=== PATIENT | female | born 1930 | race Caucasian/White ===

== ENCOUNTER 2017-07-02 14:49 | Emergency (ER) | payer MEDICARE, OTHER ==
[2017-07-02 18:38] VITALS: BP 126/93
[2017-07-02] MEDS ORDERED: NS 0.9% 1000 ML* 2,000 ML IV ONE (18:40)
[2017-07-02 18:55] LABS: Hematocrit 44 % (35-47); Hemoglobin 14.8 g/dl (12.0-16.0); Mean Corpuscular HGB Conc 34 g/dl (31-36); Mean Corpuscular Hemoglobin 30 pg (27-31); Mean Corpuscular Volume 88 fL (80-97); Mean Platelet Volume 10 um3 (7.4-10.4); Red Blood Count 4.97 10^6/ul (4.0-5.4); Red Cell Distribution Width 13 % (10.5-15); White Blood Count 10.3 10^3/ul (3.5-10.8)
[2017-07-02] MEDS ORDERED: Ondansetron INJ* 2 MG/ML VIAL IV ONE (18:55)
[2017-07-02] MEDS ORDERED: Ondansetron INJ* 2 MG/ML VIAL ONE (18:56)
[2017-07-02 19:07] LABS: Albumin 4.2 g/dL (3.2-5.2); BUN/Creatinine Ratio 30.4 (8-20); C Reactive Protein 7.86 mg/L (< 5.00); Calcium 9.9 mg/dL (8.6-10.3); EGFR African American 74.8 (>60); EGFR Non-African American 58.2 (>60); Globulin 3.7 g/dL (2-4); Total Bilirubin 0.5 mg/dL (0.2-1.0); Total Protein 7.9 g/dL (6.4-8.9)
[2017-07-02] MEDS ORDERED: Ketorolac INJ* 30 MG/ML 1 ML VIAL IV ONE ×2 (19:17→19:43)
--- NOTE | 2017-07-02 20:26 | RAD ---
CLINICAL HISTORY: Right flank pain COMPARISON: January 03, 2012 TECHNIQUE: Multiple contiguous axial CT scans were obtained of the abdomen and pelvis, without intravenous contrast enhancement. Coronal and sagittal multiplanar reformations are submitted for review. Oral contrast was not administered. FINDINGS: The study is limited by the lack of intravenous contrast. This limits evaluation of the solid organs and vasculature. LUNG BASES: The lung bases are clear. LIVER: The liver is normal in shape, size, contour, and attenuation. BILE DUCTS: There is no intrahepatic or extrahepatic biliary dilatation. GALLBLADDER: The gallbladder is not visualized. Surgical clips are noted in the gallbladder fossa. PANCREAS: The pancreas is normal, without mass or ductal dilatation. SPLEEN: Normal in size and appearance. UPPER GI TRACT: Evaluation of the gastrointestinal tract is limited by incomplete gastric distention. There is a small sliding hiatal hernia SMALL BOWEL AND MESENTERY: The small bowel is normal in contour, course, and caliber. There is no obstruction or dilatation. COLON: There are multiple diverticula of the transverse, descending, and sigmoid colon ADRENALS: Normal bilaterally. KIDNEYS: There is perinephric stranding on the right with moderate pelviectasis and hydroureter. There are multiple calculi of the distal right ureter, including a right UVJ calculus measuring 0.4 cm. There is an exophytic renal cyst on the left. BLADDER: The bladder is smooth in contour. PELVIC ORGANS: The pelvic organs are not visualized. AORTA: There is calcific atherosclerotic disease of the abdominal aorta and its branches, without aneurysmal dilatation IVC: Unremarkable LYMPH NODES: There is no lymphadenopathy by size criteria. ABDOMINAL WALL: There is a small fat-containing umbilical hernia. BONES AND SOFT TISSUES: Degenerative changes are noted of the spine OTHER: None IMPRESSION: 1. THERE ARE MULTIPLE RIGHT-SIDED URETERAL STONES, INCLUDING A 0.4 CM CALCULUS OF THE LEFT UVJ, WITH RIGHT-SIDED HYDRONEPHROSIS. 2. DIVERTICULOSIS. 3. ATHEROSCLEROSIS
[2017-07-02 21:06] LABS: Urine Bacteria Absent (Absent); Urine Bilirubin Negative (Negative); Urine Glucose 1+(50 mg/dL) (Negative); Urine Nitrite Negative (Negative)
[2017-07-02] MEDS ORDERED: traMADol TAB* 50 MG PO ONE (22:00)
[2017-07-02] MEDS ORDERED: Tamsulosin CAP* 0.4 MG PO ONE (22:00)
--- NOTE | 2017-07-02 23:14 | ED ---
Diogo Georges Nikita, scribed for Nasir Miles MD on 07/02/17 at 2241 . Abdominal Pain/Female - HPI Summary HPI Summary: This patient is an 86 year old F presenting to ED with a chief complaint of R flank pain since 0800 this morning. The CC is described as constant and non- radiating. The patient rates the pain 10/10 in severity. Symptoms aggravated by nothing. Symptoms alleviated by nothing (took Tylenol at 1300). Patient reports feeling cold, difficulty urinating (feels like she needs to urinate, but cant) , and vomiting (3x while waiting). Patient denies fever, L flank pain, CP, and SOB. PMHx of kidney stones (December 2009) and appendicitis. PSHx of appendectomy and cholecystectomy. - History of Current Complaint Chief Complaint: EDFlankPain Stated Complaint: RIGHT FLANK PAIN Time Seen by Provider: 07/02/17 19:17 Hx Obtained From: Patient Onset/Duration: Sudden Onset, Lasting Hours, Still Present Severity Initially: Severe Severity Currently: Severe Pain Intensity: 10 Pain Scale Used: 0-10 Numeric Location: Flank - R flank Radiates: No Aggravating Factor(s): Nothing Alleviating Factor(s): Nothing - took tylenol at 1300 but did not help Associated Signs and Symptoms: Positive: Other: - Patient reports feeling cold, difficulty urinating (feels like she needs to urinate, but cant), and vomiting (3x while waiting). Patient denies fever, L flank pain, CP, and SOB. Allergies/Adverse Reactions: Allergies Allergy/AdvReac Type Severity Reaction Status Date / Time No Known Allergies Allergy Verified 07/02/17 15:02 PMH/Surg Hx/FS Hx/Imm Hx Endocrine/Hematology History: Denies: Hx Diabetes Cardiovascular History: Denies: Hx Hypertension, Hx Pacemaker/ICD History: Denies: Hx Renal Disease Sensory History: Denies: Hx Hearing Aid Psychiatric History: Denies: Hx Panic Disorder - Cancer History Hx Chemotherapy: No Hx Radiation Therapy: No - Surgical History Surgery Procedure, Year, and Place: HYSTERECTOMY. GALLBLADDER. APPENDIX Infectious Disease History: No Infectious Disease History: Denies: Traveled Outside the [place] in Last 30 Days - Family History Known Family History: Positive: Unknown - pt can't remember - Social History Alcohol Use: None Substance Use Type: Reports: None Smoking Status (MU): Never Smoked Tobacco Review of Systems Negative: Fever Negative: Chest Pain Negative: Shortness Of Breath Positive: Abdominal Pain - R flank, Vomiting - 3x while eating, Other - denies L flank pain Positive: other - Difficulty urinating (feels like she needs to urinate, but can t) All Other Systems Reviewed And Are Negative: Yes Physical Exam Triage Information Reviewed: Yes Vital Signs On Initial Exam: Initial Vitals Temp Pulse Resp BP Pulse Ox 97.2 F 62 20 138/68 97 07/02/17 14:58 07/02/17 14:58 07/02/17 14:58 07/02/17 14:58 07/02/17 14:58 Vital Signs Reviewed: Yes Appearance: Positive: Well-Appearing, No Pain Distress Skin: Positive: Warm, Skin Color Reflects Adequate Perfusion, Dry Head/Face: Positive: Normal Head/Face Inspection Eyes: Positive: EOMI, RUTHIE ENT: Positive: Normal ENT inspection Neck: Positive: Supple, Nontender Respiratory/Lung Sounds: Positive: Clear to Auscultation, Breath Sounds Present Cardiovascular: Positive: RRR Abdomen Description: Positive: Soft, Other: - mild RUQ tenderness, R CVA tenderness Bowel Sounds: Positive: Present Musculoskeletal: Positive: Normal, Strength/ROM Intact Neurological: Positive: Normal, Sensory/Motor Intact, Alert, Oriented to Person Place, Time Psychiatric: Positive: Affect/Mood Appropriate Diagnostics - Vital Signs Vital Signs Temp Pulse Resp BP Pulse Ox 07/02/17 18:20 97.8 F 66 18 126/93 100 07/02/17 17:05 98.1 F 60 20 149/56 98 07/02/17 14:58 97.2 F 62 20 138/68 97 - Laboratory Lab Results: Lab Results 07/02/17 07/02/17 07/02/17 Range/Units 18:34 18:34 18:34 WBC 10.3 (3.5-10.8) 10^3/ul RBC 4.97 (4.0-5.4) 10^6/ul Hgb 14.8 (12.0-16.0) g/dl Hct 44 (35-47) % MCV 88 (80-97) fL MCH 30 (27-31) pg MCHC 34 (31-36) g/dl RDW 13 (10.5-15) % Plt Count 208 (150-450) 10^3/ul MPV 10 (7.4-10.4) um3 Neut % (Auto) 81.6 (38-83) % Lymph % (Auto) 13.9 L (25-47) % Green % (Auto) 3.8 (1-9) % Eos % (Auto) 0.5 (0-6) % Baso % (Auto) 0.2 (0-2) % Absolute Neuts (auto) 8.5 H (1.5-7.7) 10^3/ul Absolute Lymphs (auto) 1.4 (1.0-4.8) 10^3/ul Absolute Monos (auto) 0.4 (0-0.8) 10^3/ul Absolute Eos (auto) 0 (0-0.6) 10^3/ul Absolute Basos (auto) 0 (0-0.2) 10^3/ul Absolute Nucleated RBC 0.01 10^3/ul Nucleated RBC % 0.1 INR (Anticoag Therapy) 0.96 (0.89-1.11) APTT 30.6 (26.0-36.3) seconds Sodium 138 (133-145) mmol/L Potassium 4.0 (3.5-5.0) mmol/L Chloride 103 (101-111) mmol/L Carbon Dioxide 28 (22-32) mmol/L Anion Gap 7 (2-11) mmol/L BUN 28 H (6-24) mg/dL Creatinine 0.92 (0.51-0.95) mg/dL Est GFR ( Amer) 74.8 (>60) Est GFR (Non-Af Amer) 58.2 (>60) BUN/Creatinine Ratio 30.4 H (8-20) Glucose 148 H (70-100) mg/dL Lactic Acid (0.5-2.0) mmol/L Calcium 9.9 (8.6-10.3) mg/dL Total Bilirubin 0.50 (0.2-1.0) mg/dL AST 16 (13-39) U/L ALT 16 (7-52) U/L Alkaline Phosphatase 84 (34-104) U/L C-Reactive Protein 7.86 H (< 5.00) mg/L Total Protein 7.9 (6.4-8.9) g/dL Albumin 4.2 (3.2-5.2) g/dL Globulin 3.7 (2-4) g/dL Albumin/Globulin Ratio 1.1 (1-3) Lipase 18 (11.0-82.0) U/L 07/02/17 Range/Units 18:34 WBC (3.5-10.8) 10^3/ul RBC (4.0-5.4) 10^6/ul Hgb (12.0-16.0) g/dl Hct (35-47) % MCV (80-97) fL MCH (27-31) pg MCHC (31-36) g/dl RDW (10.5-15) % Plt Count (150-450) 10^3/ul MPV (7.4-10.4) um3 Neut % (Auto) (38-83) % Lymph % (Auto) (25-47) % Green % (Auto) (1-9) % Eos % (Auto) (0-6) % Baso % (Auto) (0-2) % Absolute Neuts (auto) (1.5-7.7) 10^3/ul Absolute Lymphs (auto) (1.0-4.8) 10^3/ul Absolute Monos (auto) (0-0.8) 10^3/ul Absolute Eos (auto) (0-0.6) 10^3/ul Absolute Basos (auto) (0-0.2) 10^3/ul Absolute Nucleated RBC 10^3/ul Nucleated RBC % INR (Anticoag Therapy) (0.89-1.11) APTT (26.0-36.3) seconds Sodium (133-145) mmol/L Potassium (3.5-5.0) mmol/L Chloride (101-111) mmol/L Carbon Dioxide (22-32) mmol/L Anion Gap (2-11) mmol/L BUN (6-24) mg/dL Creatinine (0.51-0.95) mg/dL Est GFR ( Amer) (>60) Est GFR (Non-Af Amer) (>60) BUN/Creatinine Ratio (8-20) Glucose (70-100) mg/dL Lactic Acid 1.2 (0.5-2.0) mmol/L Calcium (8.6-10.3) mg/dL Total Bilirubin (0.2-1.0) mg/dL AST (13-39) U/L ALT (7-52) U/L Alkaline Phosphatase (34-104) U/L C-Reactive Protein (< 5.00) mg/L Total Protein (6.4-8.9) g/dL Albumin (3.2-5.2) g/dL Globulin (2-4) g/dL Albumin/Globulin Ratio (1-3) Lipase (11.0-82.0) U/L Result Diagrams: 07/02/17 18:34 07/02/17 18:34 Lab Statement: Any lab studies that have been ordered have been reviewed, and results considered in the medical decision making process. Re-Evaluation - Re-Evaluation First Eval Re-Evaluation Time: 20:55 Change: Improved Comment: Pt is feeling better. Discussed discharge plan. Abdominal Pain Fem Course/Dx - Course Course Of Treatment: This patient is an 86 year old F presenting to ED with a chief complaint of R flank pain since 0800 this morning. The CC is described as constant and non-radiating. The patient rates the pain 10/10 in severity. Symptoms aggravated by nothing. Symptoms alleviated by nothing (took Tylenol at 1300). Patient reports feeling cold, difficulty urinating (feels like she needs to urinate, but cant), and vomiting (3x while waiting). Patient denies fever, L flank pain, CP, and SOB. In the ED course, pt was given fluids and pain medication. Medications reviewed. Pt will be discharged. Pt is agreeable with this plan. PAIN IMPROVED IN ED. DISCUSSED RESULTS WITH PATIENT/. NO EVIDENCE OF UTI. RX FLOMAX AND TRAMADOL. F/U UROLOGY; RETUEN TO ED IF WORSE. - Diagnoses Provider Diagnoses: Kidney stone on right side Discharge - Discharge Plan Condition: Stable Disposition: HOME Prescriptions: Tamsulosin CAP* [Flomax CAP*] 0.4 mg PO DAILY PRN #5 cap PRN Reason: Pain traMADol TAB* [Ultram*] 50 mg PO Q6HR PRN #15 tab MDD 4 PRN Reason: Pain Patient Education Materials: Kidney Stones (ED) Referrals: Bella Nathan MD [Primary Care Provider] - Additional Instructions: FOLLOW UP WITH UROLOGY. RETURN TO THE EMERGENCY DEPARTMENT FOR ANY WORSENING OF YOUR CONDITION; PAIN, FEVER, VOMITING, YOU FEEL ILL OR QUESTIONS OR CONCERNS. The documentation as recorded by the Diogo farias Nikita accurately reflects the service I personally performed and the decisions made by me, Nasir Miles MD.
== END 2017-07-02 21:39 | disposition home or self-care (01) ==
LOC: ED 14:49
DX: N20.0 Calculus of kidney (principal)
CPT/HCPCS: 36415; 74176; 80053; 81003; 81015; 83605; 83690; 85025; 85610; 85730; 86140; 87086; 96374; 96375; 96376; 99282; A9270-GY; J1885; J2405

== ENCOUNTER 2022-05-07 14:07 | Inpatient (IN) ==
[2022-05-07 15:35] LABS: ABS Eosinophils 0.1 10^3/ul (0-0.6); ABS Lymphocytes 1.2 10^3/ul (1.0-4.8); ABS Monocytes 1.1 10^3/ul (0-0.8); ABS Neutrophils 7.8 10^3/ul (1.5-7.7); Hematocrit 35 % (35-47); Hemoglobin 12.2 g/dL (12.0-16.0); Lymphocyte % 11.4 %; Mean Corpuscular HGB Conc 35 g/dL (31-36); Mean Corpuscular Hemoglobin 30 pg (27-31); Mean Corpuscular Volume 86 fL (80-97); Mean Platelet Volume 8.2 fL (7.4-10.4); Nucleated Red Blood Cells % 0.1; Platelet Count 398 10^3/uL (150-450); Red Blood Count 4.09 10^6 /uL (3.70-4.87); Red Cell Distribution Width 17 % (10-15); White Blood Count 10.1 10^3/uL (3.5-10.8)
[2022-05-07 15:47] LABS: Albumin 3.6 g/dL (3.2-5.2); Calcium 10.5 mg/dL (8.6-10.3); Magnesium 1.9 mg/dL (1.9-2.7); Potassium 4.4 mmol/L (3.5-5.0); Total Bilirubin 0.7 mg/dL (0.2-1.0)
[2022-05-07 15:53] LABS: Albumin/Globulin Ratio 1.2 (1-3); Phosphorus 3.6 mg/dL (2.5-5.0); Total Protein 6.6 g/dL (6.4-8.9); eGFR CKD-EPI 45.1 (>60)
[2022-05-07] MEDS ORDERED: SALIVA SUBSTITUTE MT SCH (17:00)
[2022-05-07] MEDS: Enoxaparin 40 MG/0.4 ML SYR SUBCUT SCH (18:06)
[2022-05-07] MEDS: NS 0.9% 1000 ml BAG 1,000 ML IV SCH (19:49)
[2022-05-07 21:16] LABS: Hepatitis B Surface Antigen Nonreactive (Nonreactive)
[2022-05-07 21:21] LABS: Hepatitis B Core IgM Nonreactive (Nonreactive)
[2022-05-07 21:44] LABS: Hepatitis B Surface Ab Not Immune (Immune); Hepatitis C Antibody Negative (Negative)
[2022-05-08] MEDS: NS 0.9% 1000 ml BAG 1,000 ML IV SCH ×2 (05:54→16:53)
[2022-05-08 07:00] LABS: ABS Eosinophils 0.2 10^3/ul (0-0.6); ABS Lymphocytes 1.4 10^3/ul (1.0-4.8); ABS Monocytes 0.8 10^3/ul (0-0.8); ABS Neutrophils 6.1 10^3/ul (1.5-7.7); Eosinophil % 1.8 %; Hematocrit 34 % (35-47); Hemoglobin 11.9 g/dL (12.0-16.0); Lymphocyte % 16.9 %; Mean Corpuscular HGB Conc 35 g/dL (31-36); Mean Corpuscular Hemoglobin 30 pg (27-31); Mean Corpuscular Volume 86 fL (80-97); Mean Platelet Volume 8.8 fL (7.4-10.4); Platelet Count 376 10^3/uL (150-450); Red Blood Count 3.98 10^6 /uL (3.70-4.87); Red Cell Distribution Width 17 % (10-15); White Blood Count 8.5 10^3/uL (3.5-10.8)
[2022-05-08 07:25] LABS: Albumin 3.5 g/dL (3.2-5.2); Albumin/Globulin Ratio 1.3 (1-3); Calcium 10.4 mg/dL (8.6-10.3); Globulin 2.7 g/dL (2-4); Phosphorus 3.4 mg/dL (2.5-5.0); Potassium 4.7 mmol/L (3.5-5.0); Total Bilirubin 0.6 mg/dL (0.2-1.0); Total Protein 6.2 g/dL (6.4-8.9); Uric Acid 9.3 mg/dL (2.3-6.6); eGFR CKD-EPI 50.2 (>60)
[2022-05-08] MEDS: Multivitamins/Minerals TAB PO SCH (10:16)
[2022-05-08] MEDS: CMC: Simvastatin 10 mg TAB (NF) PO SCH (10:17)
[2022-05-08] MEDS: Enoxaparin 40 MG/0.4 ML SYR SUBCUT SCH (16:55)
[2022-05-09] MEDS: NS 0.9% 1000 ml BAG 1,000 ML IV SCH ×2 (02:57→20:37)
[2022-05-09 07:00] LABS: ABS Eosinophils 0.2 10^3/ul (0-0.6); ABS Lymphocytes 0.9 10^3/ul (1.0-4.8); ABS Monocytes 0.8 10^3/ul (0-0.8); ABS Neutrophils 4.9 10^3/ul (1.5-7.7); Hematocrit 31 % (35-47); Lymphocyte % 13.7 %; Mean Corpuscular HGB Conc 33 g/dL (31-36); Mean Corpuscular Hemoglobin 28 pg (27-31); Mean Corpuscular Volume 86 fL (80-97); Mean Platelet Volume 8.9 fL (7.4-10.4); Platelet Count 298 10^3/uL (150-450); Red Blood Count 3.54 10^6 /uL (3.70-4.87); Red Cell Distribution Width 18 % (10-15); White Blood Count 6.9 10^3/uL (3.5-10.8)
[2022-05-09 07:12] LABS: Albumin/Globulin Ratio 1.4 (1-3); Calcium 9.7 mg/dL (8.6-10.3); Globulin 2.2 g/dL (2-4); Phosphorus 3.1 mg/dL (2.5-5.0); Potassium 4.5 mmol/L (3.5-5.0); Total Bilirubin 0.5 mg/dL (0.2-1.0); Total Protein 5.2 g/dL (6.4-8.9); Uric Acid 7.2 mg/dL (2.3-6.6); eGFR CKD-EPI 63.6 (>60)
[2022-05-09] MEDS ORDERED: Rasburicase 1.5 MG VIAL(NF) IVPB ONE (09:00)
[2022-05-09] MEDS: Multivitamins/Minerals TAB PO SCH (09:51)
[2022-05-09] MEDS: CMC: Simvastatin 10 mg TAB (NF) PO SCH (09:52)
[2022-05-09] MEDS: Enoxaparin 40 MG/0.4 ML SYR SUBCUT SCH (18:11)
[2022-05-10 05:39] LABS: ABS Lymphocytes 1.1 10^3/ul (1.0-4.8); ABS Monocytes 0.6 10^3/ul (0-0.8); ABS Neutrophils 5.7 10^3/ul (1.5-7.7); Eosinophil % 0.2 %; Hematocrit 31 % (35-47); Hemoglobin 9.9 g/dL (12.0-16.0); Lymphocyte % 14.6 %; Mean Corpuscular HGB Conc 32 g/dL (31-36); Mean Corpuscular Hemoglobin 28 pg (27-31); Mean Corpuscular Volume 87 fL (80-97); Mean Platelet Volume 8.8 fL (7.4-10.4); Nucleated Red Blood Cells % 0.1; Platelet Count 319 10^3/uL (150-450); Red Blood Count 3.57 10^6 /uL (3.70-4.87); Red Cell Distribution Width 18 % (10-15); White Blood Count 7.5 10^3/uL (3.5-10.8)
[2022-05-10 05:57] LABS: Albumin/Globulin Ratio 1.3 (1-3); Calcium 9.3 mg/dL (8.6-10.3); Globulin 2.3 g/dL (2-4); Phosphorus 2.9 mg/dL (2.5-5.0); Potassium 4.4 mmol/L (3.5-5.0); Total Bilirubin 0.4 mg/dL (0.2-1.0); Total Protein 5.3 g/dL (6.4-8.9); Uric Acid 6.2 mg/dL (2.3-6.6); eGFR CKD-EPI 53.2 (>60)
[2022-05-10] MEDS: NS 0.9% 1000 ml BAG 1,000 ML IV SCH ×2 (07:33→18:20)
[2022-05-10] MEDS: Multivitamins/Minerals TAB PO SCH (09:48)
[2022-05-10] MEDS: CMC: Simvastatin 10 mg TAB (NF) PO SCH (09:49)
[2022-05-10] MEDS: Sulfamethox/Trimethoprim DS TAB 800/160 mg PO SCH (10:00)
[2022-05-10] MEDS ORDERED: HYDROcodone/ACETAMIN 5/325 mg TAB PO ONE (14:56)
[2022-05-10] MEDS: Enoxaparin 40 MG/0.4 ML SYR SUBCUT SCH (17:51)
[2022-05-11] MEDS: NS 0.9% 1000 ml BAG 1,000 ML IV SCH ×2 (05:25→16:29)
[2022-05-11] MEDS ORDERED: Palonosetron 0.05 MG/ML 5 ML VIAL IV ONE (05:30)
[2022-05-11 05:44] LABS: ABS Lymphocytes 1.2 10^3/ul (1.0-4.8); ABS Monocytes 0.6 10^3/ul (0-0.8); ABS Neutrophils 7.7 10^3/ul (1.5-7.7); Eosinophil % 0.1 %; Hematocrit 33 % (35-47); Hemoglobin 10.6 g/dL (12.0-16.0); Lymphocyte % 12.9 %; Mean Corpuscular HGB Conc 33 g/dL (31-36); Mean Corpuscular Hemoglobin 28 pg (27-31); Mean Corpuscular Volume 86 fL (80-97); Mean Platelet Volume 8.2 fL (7.4-10.4); Platelet Count 392 10^3/uL (150-450); Red Blood Count 3.78 10^6 /uL (3.70-4.87); Red Cell Distribution Width 18 % (10-15); White Blood Count 9.6 10^3/uL (3.5-10.8)
[2022-05-11] MEDS ORDERED: Famotidine IV 10 MG/ML 2 ml VIAL (20 mg) IV PRN (06:00)
[2022-05-11] MEDS ORDERED: RITUXIMAB ABBS IVPB ONE (06:00)
[2022-05-11] MEDS ORDERED: NS 0.9% IVPB ONE ×5 (06:00→16:00)
[2022-05-11] MEDS ORDERED: methylPREDNISolone SOD SUCC 125 mg 2 ML VIAL IV PRN (06:00)
[2022-05-11] MEDS ORDERED: Meperidine 50 mg/ml SYRINGE 1 ml IV PRN (06:00)
[2022-05-11 06:29] LABS: Albumin 3.4 g/dL (3.2-5.2); Albumin/Globulin Ratio 1.4 (1-3); Globulin 2.4 g/dL (2-4); Phosphorus 3.1 mg/dL (2.5-5.0); Total Bilirubin 0.4 mg/dL (0.2-1.0); Total Protein 5.8 g/dL (6.4-8.9); Uric Acid 5.1 mg/dL (2.3-6.6); eGFR CKD-EPI 59.5 (>60)
[2022-05-11] MEDS ORDERED: DOXORUBICIN IVPB ONE ×2 (10:00→15:00)
[2022-05-11] MEDS ORDERED: Furosemide 20 mg/2 ml IV VIAL IV ONE (10:08)
[2022-05-11] MEDS ORDERED: VINCRISTINE IVPB ONE ×2 (10:15→15:30)
[2022-05-11] MEDS ORDERED: CYCLOPHOSPHAMIDE IVPB ONE ×2 (11:00→16:00)
[2022-05-11] MEDS: Enoxaparin 40 MG/0.4 ML SYR SUBCUT SCH (17:41)
[2022-05-12] MEDS: NS 0.9% 1000 ml BAG 1,000 ML IV SCH ×2 (03:14→12:48)
[2022-05-12 05:54] LABS: ABS Lymphocytes 0.5 10^3/ul (1.0-4.8); ABS Monocytes 0.3 10^3/ul (0-0.8); ABS Neutrophils 6.5 10^3/ul (1.5-7.7); Hematocrit 30 % (35-47); Hemoglobin 9.7 g/dL (12.0-16.0); Mean Corpuscular HGB Conc 33 g/dL (31-36); Mean Corpuscular Hemoglobin 28 pg (27-31); Mean Corpuscular Volume 87 fL (80-97); Nucleated Red Blood Cells % 0.1; Platelet Count 277 10^3/uL (150-450); Red Blood Count 3.42 10^6 /uL (3.70-4.87); Red Cell Distribution Width 18 % (10-15); White Blood Count 7.3 10^3/uL (3.5-10.8)
[2022-05-12 06:41] LABS: Calcium 9.2 mg/dL (8.6-10.3); Potassium 4.9 mmol/L (3.5-5.0); Uric Acid 4.9 mg/dL (2.3-6.6); eGFR CKD-EPI 64.5 (>60)
[2022-05-12] MEDS: Sulfamethox/Trimethoprim DS TAB 800/160 mg PO SCH (10:25)
[2022-05-12] MEDS: Enoxaparin 40 MG/0.4 ML SYR SUBCUT SCH (18:19)
[2022-05-13] MEDS: NS 0.9% 1000 ml BAG 1,000 ML IV SCH ×2 (00:56→10:35)
[2022-05-13 06:25] LABS: Hematocrit 32 % (35-47); Hemoglobin 10.3 g/dL (12.0-16.0); Mean Corpuscular HGB Conc 33 g/dL (31-36); Mean Corpuscular Hemoglobin 28 pg (27-31); Mean Corpuscular Volume 87 fL (80-97); Mean Platelet Volume 8.3 fL (7.4-10.4); Platelet Count 347 10^3/uL (150-450); Red Blood Count 3.63 10^6 /uL (3.70-4.87); Red Cell Distribution Width 18 % (10-15); White Blood Count 31.4 10^3/uL (3.5-10.8)
[2022-05-13 06:44] LABS: Calcium 9.4 mg/dL (8.6-10.3); Phosphorus 5.5 mg/dL (2.5-5.0); Uric Acid 5.3 mg/dL (2.3-6.6); eGFR CKD-EPI 72.6 (>60)
[2022-05-13 06:46] LABS: Potassium 5.1 mmol/L (3.5-5.0)
[2022-05-13 07:46] LABS: ABS Lymphocytes 1.1 10^3/ul (1.0-4.8); ABS Monocytes 1.1 10^3/ul (0-0.8); ABS Neutrophils 29.1 10^3/ul (1.5-7.7); Lymphocyte % 3.5 %
[2022-05-13] MEDS ORDERED: Calcium Carb (TUMS) 500 mg CHEW TAB PO ONE (10:50)
[2022-05-13 16:33] LABS: Phosphorus 5.2 mg/dL (2.5-5.0); Potassium 4.9 mmol/L (3.5-5.0); Uric Acid 5.5 mg/dL (2.3-6.6)
[2022-05-13] MEDS: Enoxaparin 40 MG/0.4 ML SYR SUBCUT SCH (16:36)
[2022-05-14 07:01] LABS: Hematocrit 28 % (35-47); Hemoglobin 9.3 g/dL (12.0-16.0); Mean Corpuscular HGB Conc 33 g/dL (31-36); Mean Corpuscular Hemoglobin 29 pg (27-31); Mean Corpuscular Volume 88 fL (80-97); Mean Platelet Volume 8.3 fL (7.4-10.4); Platelet Count 290 10^3/uL (150-450); Red Blood Count 3.19 10^6 /uL (3.70-4.87); Red Cell Distribution Width 19 % (10-15); White Blood Count 33.8 10^3/uL (3.5-10.8)
[2022-05-14 07:03] LABS: Calcium 8.9 mg/dL (8.6-10.3); Phosphorus 5.4 mg/dL (2.5-5.0); Potassium 4.8 mmol/L (3.5-5.0); Uric Acid 5.8 mg/dL (2.3-6.6); eGFR CKD-EPI 83.2 (>60)
[2022-05-14 07:50] LABS: ABS Lymphocytes 0.9 10^3/ul (1.0-4.8); ABS Monocytes 0.7 10^3/ul (0-0.8); ABS Neutrophils 32.1 10^3/ul (1.5-7.7); Lymphocyte % 2.7 %
[2022-05-14] MEDS: Sulfamethox/Trimethoprim DS TAB 800/160 mg PO SCH (08:14)
[2022-05-14] MEDS ORDERED: Polyethylene Glycol 3350 17 GM PACKET PO PRN (11:22)
[2022-05-14] MEDS: NS 0.9% 1000 ml BAG 1,000 ML IV SCH (16:26)
[2022-05-14] MEDS: Enoxaparin 40 MG/0.4 ML SYR SUBCUT SCH (16:27)
[2022-05-15] MEDS: NS 0.9% 1000 ml BAG 1,000 ML IV SCH (03:17)
[2022-05-15 05:48] LABS: Hematocrit 32 % (35-47); Hemoglobin 10.5 g/dL (12.0-16.0); Mean Corpuscular HGB Conc 33 g/dL (31-36); Mean Corpuscular Hemoglobin 29 pg (27-31); Mean Corpuscular Volume 87 fL (80-97); Mean Platelet Volume 8.5 fL (7.4-10.4); Platelet Count 332 10^3/uL (150-450); Red Blood Count 3.63 10^6 /uL (3.70-4.87); Red Cell Distribution Width 19 % (10-15); White Blood Count 40.8 10^3/uL (3.5-10.8)
[2022-05-15 06:30] LABS: Phosphorus 4.3 mg/dL (2.5-5.0); Uric Acid 5.6 mg/dL (2.3-6.6); eGFR CKD-EPI 85.1 (>60)
[2022-05-15 08:30] LABS: ABS Lymphocytes 1.1 10^3/ul (1.0-4.8); ABS Monocytes 0.5 10^3/ul (0-0.8); ABS Neutrophils 39.2 10^3/ul (1.5-7.7); Lymphocyte % 2.6 %; RBC Morphology Normal (Normal)
[2022-05-15] MEDS ORDERED: Sodium Phosphate ADULT ENEMA 133 ML BTL PR ONE (14:43)
[2022-05-15] MEDS: Enoxaparin 80 MG/0.8 ML SYR SUBCUT SCH (14:43)
[2022-05-16] MEDS: Enoxaparin 80 MG/0.8 ML SYR SUBCUT SCH ×2 (01:35→15:30)
[2022-05-16 06:07] LABS: Hematocrit 32 % (35-47); Hemoglobin 10.4 g/dL (12.0-16.0); Mean Corpuscular HGB Conc 32 g/dL (31-36); Mean Corpuscular Hemoglobin 28 pg (27-31); Mean Corpuscular Volume 87 fL (80-97); Mean Platelet Volume 8.4 fL (7.4-10.4); Platelet Count 305 10^3/uL (150-450); Red Blood Count 3.68 10^6 /uL (3.70-4.87); Red Cell Distribution Width 18 % (10-15); White Blood Count 33.3 10^3/uL (3.5-10.8)
[2022-05-16 06:24] LABS: Anisocytosis 1+
[2022-05-16 06:25] LABS: ABS Basophils 0.1 10^3/ul (0-0.2); ABS Eosinophils 0.1 10^3/ul (0-0.6); ABS Lymphocytes 1.1 10^3/ul (1.0-4.8); ABS Monocytes 0.2 10^3/ul (0-0.8); ABS Neutrophils 31.8 10^3/ul (1.5-7.7); Eosinophil % 0.2 %; Lymphocyte % 3.3 %; Toxic Granulation 1+
[2022-05-16 06:43] LABS: Phosphorus 4.2 mg/dL (2.5-5.0); Uric Acid 5.1 mg/dL (2.3-6.6); eGFR CKD-EPI 85.1 (>60)
[2022-05-16 06:50] LABS: Potassium 5.5 mmol/L (3.5-5.0)
[2022-05-17] MEDS: Enoxaparin 80 MG/0.8 ML SYR SUBCUT SCH ×2 (05:30→14:15)
[2022-05-17 06:12] LABS: Hematocrit 29 % (35-47); Hemoglobin 9.8 g/dL (12.0-16.0); Mean Corpuscular HGB Conc 33 g/dL (31-36); Mean Corpuscular Hemoglobin 29 pg (27-31); Mean Corpuscular Volume 88 fL (80-97); Platelet Count 254 10^3/uL (150-450); Red Blood Count 3.34 10^6 /uL (3.70-4.87); Red Cell Distribution Width 18 % (10-15); White Blood Count 10.8 10^3/uL (3.5-10.8)
[2022-05-17 06:39] LABS: Calcium 8.6 mg/dL (8.6-10.3); Phosphorus 3.8 mg/dL (2.5-5.0); Potassium 5.3 mmol/L (3.5-5.0); Uric Acid 4.9 mg/dL (2.3-6.6); eGFR CKD-EPI 84.7 (>60)
[2022-05-17 08:16] LABS: ABS Eosinophils 0.3 10^3/ul (0-0.6); ABS Lymphocytes 0.7 10^3/ul (1.0-4.8); ABS Monocytes 0.2 10^3/ul (0-0.8); ABS Neutrophils 9.5 10^3/ul (1.5-7.7); Anisocytosis 1+; Eosinophil % 2.4 %; Lymphocyte % 6.8 %
[2022-05-17] MEDS: Sulfamethox/Trimethoprim DS TAB 800/160 mg PO SCH (10:17)
[2022-05-17] MEDS: Nystatin TOP POWDER 15 GM BTL TOPICAL SCH (20:49)
[2022-05-18] MEDS: Enoxaparin 80 MG/0.8 ML SYR SUBCUT SCH ×2 (02:49→14:43)
[2022-05-18 10:17] LABS: Hematocrit 29 % (35-47); Hemoglobin 9.6 g/dL (12.0-16.0); Mean Corpuscular HGB Conc 33 g/dL (31-36); Mean Corpuscular Hemoglobin 29 pg (27-31); Mean Corpuscular Volume 88 fL (80-97); Mean Platelet Volume 8.8 fL (7.4-10.4); Platelet Count 221 10^3/uL (150-450); Red Blood Count 3.31 10^6 /uL (3.70-4.87); Red Cell Distribution Width 18 % (10-15); White Blood Count 3.8 10^3/uL (3.5-10.8)
[2022-05-18 10:33] LABS: Calcium 8.4 mg/dL (8.6-10.3); Potassium 4.5 mmol/L (3.5-5.0); Uric Acid 3.9 mg/dL (2.3-6.6); eGFR CKD-EPI 83.5 (>60)
[2022-05-18 11:43] LABS: ABS Eosinophils 0.1 10^3/ul (0-0.6); ABS Lymphocytes 0.5 10^3/ul (1.0-4.8); ABS Monocytes 0.4 10^3/ul (0-0.8); ABS Neutrophils 2.8 10^3/ul (1.5-7.7); Eosinophil % 3.6 %; Lymphocyte % 13.8 %
[2022-05-18] MEDS: Nystatin TOP POWDER 15 GM BTL TOPICAL SCH ×2 (16:42→20:32)
[2022-05-19] MEDS: Enoxaparin 80 MG/0.8 ML SYR SUBCUT SCH (03:25)
[2022-05-19 07:47] VITALS: BP 112/43
[2022-05-19] MEDS: Nystatin TOP POWDER 15 GM BTL TOPICAL SCH (08:09)
[2022-05-19] MEDS: Sulfamethox/Trimethoprim DS TAB 800/160 mg PO SCH (08:11)
== END 2022-05-19 12:05 | DRG 846 ==
LOC: CHOA 14:07 → MED 16:54
PROVIDERS: ADMIT Internal Medicine Medical Oncology; ATTEND Internal Medicine Medical Oncology